=== PATIENT | female | born 1965 | race American Indian/Alaskan Native ===

== ENCOUNTER 2017-05-02 15:26 | Outpatient (CLI) | payer OTHER ==
--- NOTE | 2017-05-02 16:00 | Ultrasound Report ---
RIGHT BREAST ULTRASOUND: 05/02/17 15:26:00 CLINICAL: Enlarging right breast masses. COMPARISON: 01/21/16 ultrasound and 04/07/17 mammogram FINDINGS: Ultrasound of the right breast demonstrated 2 benign anechoic cysts at 9 o'clock that correlate with mammographic masses. The larger is 11 cm from the nipple and measures 2.8 x 1.7 x 3.0 cm. Smaller is at 10 cm from the nipple and measures 2.5 x 1.8 x 1.2 cm. No solid mass or shadowing. IMPRESSION: 2 benign right breasts cyst at 9 o'clock. BI-RADS 2 - - Benign RECOMMENDATION: Routine mammographic screening.
== END 2017-05-02 15:27 | disposition home or self-care (01) ==
LOC: US 15:26
PROVIDERS: ATTEND Family Medicine Adult Medicine
DX: N60.01 Solitary cyst of right breast (principal)

== ENCOUNTER 2019-04-17 13:18 | Outpatient (CLI) | payer OTHER ==
--- NOTE | 2019-04-17 16:09 | Mammography Report ---
DIGITAL SCREENING MAMMOGRAM WITH CAD, 04/17/2019 INDICATION: Routine screening mammography. TECHNIQUE: Digital bilateral 2D mammography was obtained in the craniocaudal and mediolateral obliq ue projections. This examination was interpreted with the benefit of Computer-Aided Detection analysi s. COMPARISON: 04/13/2018, 04/07/2017 and 01/14/2016 FINDINGS: Breast Density: The breasts are heterogeneously dense, which may obscure small masses. There is no evidence of dominant mass, suspicious calcifications or architectural distortion in eithe r breast. IMPRESSION: No mammographic evidence of malignancy. Follow up recommendation: Routine yearly BI-RADS Category 1: Negative. A "normal" or negative report should not discourage follow up or biopsy of a clinically significant f inding. A written summary of these findings will be mailed to the patient. The patient will be entered into a mammography reporting system which will generate a reminder letter for the patient's next appointmen t at the appropriate interval. The [employer] recommends yearly mammograms starting at age 40 and continuing as l amita as a woman is in good health. Breast MRI is recommended for women with an approximate 20-25% or greater lifetime risk of breast cancer, including women with a strong family history of breast or ova yuliana cancer or who have been treated for Hodgkin's disease. Signer Name: Dayton Pineda MD Signed: 04/17/2019 4:04 PM Workstation Name: [id number]
== END 2019-04-17 13:19 | disposition home or self-care (01) ==
LOC: SPVWC 13:18
PROVIDERS: ATTEND Family Medicine Adult Medicine
DX: Z12.31 Encounter for screening mammogram for malignant neoplasm of breast (principal)
CPT/HCPCS: 77067